=== PATIENT | female | born 1985 | race African-American/Black ===

== ENCOUNTER 2020-02-11 11:06 | Emergency (ER) | payer MEDICAID ==
[~2020-02-11] VITALS: Ht 167.6 cm; Wt 85.0 kg
[2020-02-11 12:36] LABS: BASOPHILS % 0.7 % (0.0-2.0); EOSINOPHILS % 0.7 % (0.0-5.0); HEMATOCRIT. 37.1 % (36.0-48.0); HEMOGLOBIN. 12.5 g/dL (12.0-16.0); LYMPHOCYTES % 22.6 % (20.0-50.0); MEAN CORPUSCULAR HEMOGLOBIN 28.9 pg (28.0-32.0); MEAN CORPUSCULAR VOLUME 85.7 fL (81.0-99.0); MEAN PLATELET VOLUME 7.5 fl (7.4-10.4); MONOCYTES % 5.8 % (2.0-8.0); NEUTROPHILS % 70.2 % (40.0-76.0); PLATELET 270 x1000/uL (130-400); RED BLOOD CELL COUNT 4.32 mill/uL (4.2-5.4); RED CELL DISTRIBUTION WIDTH 14.5 % (11.6-14.6)
[2020-02-11 12:44] LABS: CHLORIDE 107 mEq/L (98-107)
[2020-02-11 12:53] LABS: ETHANOL BLOOD < 10 mg/dL
[2020-02-11 13:08] LABS: HCG SCREEN NEGATIVE
[2020-02-11 14:06] LABS: CLARITY URINE CLOUDY (CLEAR); COLOR URINE YELLOW (YELLOW); KETONES URINE NEGATIVE (NEGATIVE); LEUKOCYTE ESTERASE URINE 1+ (NEGATIVE); NITRITE URINE NEGATIVE (NEGATIVE); OCCULT BLOOD URINE 2+ (NEGATIVE); PROTEIN URINE TRACE (NEGATIVE); SPECIFIC GRAVITY URINE 1.037 (1.005-1.030)
[2020-02-11 14:21] LABS: *BARBITURATES SCREEN URINE NEGATIVE (NEGATIVE)
[2020-02-11 14:22] LABS: *BENZODIAZEPINES SCREEN URINE NEGATIVE (NEGATIVE); *COCAINE SCREEN URINE NEGATIVE (NEGATIVE); METHADONE URINE SCREEN NEGATIVE (NEGATIVE); OPIATES URINE SCREEN NEGATIVE (NEGATIVE); PHENCYCLIDINE URINE SCREEN NEGATIVE (NEGATIVE)
[2020-02-11 14:23] LABS: *AMPHETAMINES SCREEN URINE NEGATIVE (NEGATIVE); CANNABINOID URINE SCREEN NEGATIVE (NEGATIVE)
[2020-02-11] MEDS ORDERED: NITROFURANTOIN 100MG M/M CAPSULE PO SCH (21:00)
[2020-02-12] MEDS: NITROFURANTOIN 100MG M/M CAPSULE PO SCH ×2 (04:00→17:44)
[2020-02-12] MEDS ORDERED: LORAZEPAM 1MG TABLET PO PRN (11:30)
[2020-02-12] MEDS: ZIPRASIDONE HCL 20MG CAPSULE PO SCH ×2 (12:11→19:00)
[2020-02-13] MEDS: NITROFURANTOIN 100MG M/M CAPSULE PO SCH ×2 (06:07→19:47)
[2020-02-13] MEDS: ZIPRASIDONE HCL 20MG CAPSULE PO SCH ×2 (09:00→17:04)
[2020-02-13] MEDS ORDERED: GLIMEPIRIDE 2MG TABLET PO ONE (11:45)
[2020-02-14] MEDS: NITROFURANTOIN 100MG M/M CAPSULE PO SCH (07:01)
[2020-02-14] MEDS ORDERED: PIOGLITAZONE 45MG TABLET PO ONE (09:00)
[2020-02-14] MEDS: ZIPRASIDONE HCL 20MG CAPSULE PO SCH (11:02)
[2020-02-14 13:00] VITALS: BP 138/91
[2020-02-15] MEDS ORDERED: PIOGLITAZONE 45MG TABLET PO ONE (11:00)
[2020-02-15] MEDS ORDERED: GLIMEPIRIDE 2MG TABLET PO ONE (11:00)
== END 2020-02-14 13:15 ==
LOC: ER 11:29
DX: R26.9 Unspecified abnormalities of gait and mobility (principal); R45.850 Homicidal ideations; R45.851 Suicidal ideations; F32.9 Major depressive disorder, single episode, unspecified; E11.9 Type 2 diabetes mellitus without complications; Z75.1 Person awaiting admission to adequate facility elsewhere
CPT/HCPCS: 36415; 80053; 80305; 80307; 80320; 80329; 81003; 82962; 84703; 85025; 99285; G0480